=== PATIENT | female | born 1960 | race Caucasian/White ===

== ENCOUNTER 2017-04-16 19:34 | Emergency (ER) | payer OTHER ==
[2017-04-16 19:52] VITALS: BP 123/76; PULSE 102; TEMP 98.1; BMI 26.6
--- NOTE | 2017-04-16 19:52 | PDOC ---
Rapid Medical Evaluation Time Seen by Provider: 04/16/17 19:48 Medical Evaluation: Allergies Allergy/AdvReac Type Severity Reaction Status Date / Time No Known Allergies Allergy Verified 05/14/16 15:17 04/16/17 19:48 I have performed a brief in-person evaluation of this patient. The patient presents with a chief complaint of: Abd incisional redness/pain abdominoplasty x10d ago in [place] Pertinent physical exam findings: lower abd incision/ +erythematous/tenderon palp I have ordered the following: wound culture to incision The patient will proceed to the ED for further evaluation:
[2017-04-16] MEDS ORDERED: SODIUM CHLORIDE 1,000 ML IV ONE (21:14)
--- NOTE | 2017-04-16 21:19 | PDOC ---
History of Present Illness - General History Source: Patient - History of Present Illness Initial Comments: 04/16/17 23:19 "The patient is a 56 year old female with significant medical history of hyperlipidemia and prediabetes who presents to the ED 10 days s/p abdominoplasty with complaints of increasing redness and pain at her incision site for the past day. The patient reports the pain to be worst in the right lower quadrant. She reports a subjective fever secondary to her symptoms, but denies any chills. She reports seeing her surgeon 4 days post-op and was reported to be well. She reports her next visit to her surgeon will be in April. She denies nausea and vomiting, diaphoresis, cough, SOB, CP, or urinary symptoms. PCP: Dr. Omar Huston " <Misty Velásquez - Last Filed: 04/16/17 23:19> <Sam Smith - Last Filed: 04/17/17 03:11> - General Chief Complaint: Pain, Acute Stated Complaint: POST OP PAIN Time Seen by Provider: 04/16/17 19:48 Past History <Misty Velásquez - Last Filed: 04/16/17 23:19> - Past Medical History COPD: No Diabetes: Yes (PRE-DIABETES) - Suicide/Smoking/Psychosocial Hx Smoking History: Never smoked Hx Alcohol Use: No Drug/Substance Use Hx: No Substance Use Type: None Hx Substance Use Treatment: No <Sam Smith - Last Filed: 04/17/17 03:11> - Past Medical History Allergies/Adverse Reactions: Allergies Allergy/AdvReac Type Severity Reaction Status Date / Time cephalexin Allergy Verified 04/16/17 19:49 Home Medications: Ambulatory Orders Ibuprofen [Motrin -] 600 mg PO TID PRN 04/16/17 Amox-Tr/K Cl [Augmentin - 875Mg Tablet] 1 tab PO BID #10 tablet 04/17/17 Review of Systems - Review of Systems Comments:: 04/16/17 23:20 "CONSTITUTIONAL: + Subjective Fever No reported: Chills, Diaphoresis, Generalized Weakness, Malaise, Loss of Appetite HEENT: No reported: Rhinorrhea, Nasal Congestion, Throat Pain, Throat Swelling, Difficulty Swallowing, Mouth Swelling, Ear Pain, Eye Pain, Visual Changes CARDIOVASCULAR: No reported: Chest Pain, Syncope, Palpitations, Irregular Heart Rate, Lightheadedness, Peripheral Edema RESPIRATORY: No reported: Cough, Shortness of Breath, SOB with Exertion, Orthopnea, Wheezing , Stridor, Hemoptysis GASTROINTESTINAL: + Abdominal Pain No reported: Abdominal Distension, Nausea, Vomiting, Diarrhea, Constipation, Melena, Hematochezia GENITOURINARY: No reported: Dysuria, Frequency, Urgency, Hesitancy, Flank Pain, Genital Pain MUSCULOSKELETAL: No reported: Myalgia, Arthralgia, Joint Swelling, Back pain, Neck Pain SKIN: +Redness at incision site No reported: Itching, Pallor HEMEATOLOGIC/IMMUNOLOGIC: No reported: Easy Bleeding, Easy Bruising, Lymphadenopathy, Frequent infections ENDOCRINE: No reported: Unexplained Weight Gain, Unexplained Weight Loss, Heat Intolerance , Cold Intolerance NEUROLOGIC: No reported: Headache, Focal Weakness, Paresthesias, Vertigo, Lightheadedness, Unsteady Gait, Seizure, Mental Status Changes, Incontinence PSYCHIATRIC: No reported: Anxiety, Depression " All Other Systems: Reviewed and Negative <Misty Velásquez - Last Filed: 04/16/17 23:19> *Physical Exam - Vital Signs Last Vital Signs Temp Pulse Resp BP Pulse Ox 98.1 F 102 H 16 123/76 99 04/16/17 19:51 04/16/17 19:51 04/16/17 19:51 04/16/17 19:51 04/16/17 19:51 - Physical Exam Comments: 04/16/17 23:20 "GENERAL: The patient is awake, alert, and fully oriented, Nontoxic - in no acute distress. HEAD: Normocephalic, atraumatic. EYES: extraocular movements intact, sclera anicteric, conjunctiva clear. ENT: Normal voice, Moist mucous membranes. NECK: Normal range of motion, supple LUNGS: Breath sounds equal, clear to auscultation bilaterally. No wheezes, no rhonchi, no rales. HEART: Regular rate and rhythm, normal S1 and S2 without murmur, rub or gallop. ABDOMEN: Soft, nontender,large horizontal incision on lower abdomen, on R side of abdomen +induration with some yellowish translucent discharge, mild erythema , +ttp EXTREMITIES: Normal range of motion, no edema. No clubbing or cyanosis. No cords, erythema, or tenderness. NEUROLOGICAL: No facial assymetry, Normal speech, PSYCH: Normal mood, normal affect. SKIN: Warm, Dry, normal turgor," <Misty Velásquez - Last Filed: 04/16/17 23:19> - Vital Signs Last Vital Signs Temp Pulse Resp BP Pulse Ox 98.1 F 102 H 16 123/76 99 04/16/17 19:51 04/16/17 19:51 04/16/17 19:51 04/16/17 19:51 04/16/17 19:51 <Sam Smith - Last Filed: 04/17/17 03:11> ED Treatment Course - LABORATORY CBC & Chemistry Diagram: 04/16/17 21:25 04/16/17 21:25 - ADDITIONAL ORDERS Additional order review: Laboratory Results 04/16/17 21:25 Sodium 140 Potassium 4.0 Chloride 104 Carbon Dioxide 29 Anion Gap 7 L BUN 13 Creatinine 0.7 Creat Clearance w eGFR > 60 Random Glucose 95 Calcium 8.6 Total Bilirubin 0.3 AST 14 L ALT 29 Alkaline Phosphatase 120 H Total Protein 7.4 Albumin 3.4 04/16/17 21:25 RBC 4.13 MCV 88.0 MCHC 34.9 RDW 12.9 MPV 7.9 Neutrophils % 52.8 Lymphocytes % 36.5 Monocytes % 7.7 Eosinophils % 2.1 Basophils % 0.9 - Medications Given in the ED: ED Medications Discontinued Medications Generic Name Dose Route Start Last Admin Trade Name Hueyq PRN Reason Stop Dose Admin Sodium Chloride 1,000 mls @ 1,000 mls/hr 04/16/17 21:14 04/16/17 21:33 Normal Saline - IV 04/16/17 22:13 1,000 mls/hr .Q1H ONE Administration <Misty Velásquez - Last Filed: 04/16/17 23:19> - LABORATORY CBC & Chemistry Diagram: 04/16/17 21:25 04/16/17 21:25 - RADIOLOGY Radiology Studies Ordered: Category Date Time Status ABDOMEN & PELVIS CT WITH CONTR [CT] Stat CT Scan 04/16/17 21:13 Ordered <Sam Smith - Last Filed: 04/17/17 03:11> Medical Decision Making - Medical Decision Making 04/16/17 21:14 56y F s/p abdominoplasty 10 days ago presenting with worsening pain/redness of her wound +mild dc, mild tenderness/induration on the R side of her wound, minimal erythema concern for infctio nvs abscess/collection will ck labs, ct abd will erasess A portion of this note was documented by scribe services under my direction. I have reviewed the details of the note, within reason, and agree with the documentation with the following case summary and management plan written by me 04/17/17 02:38 pts labs reviewed no signs of leukocytosis ct abdomen shows some small collections approx 3.6 x 1.2 x 2.9 n ruq abd wall and and right anterior pelvic wall measuring 2.9 x 1.2 x 1.4. 04/17/17 02:41 will give pt some ceftriaxone will discuss with dr. Gray regarding CT results and plan ([phone]) 04/17/17 03:[address] Burrows states that it is frequent to have these collections would recommend pt fu with him as outpatient tomorrow would recommend abx, pt did not tolerate prophylactic keflex, is ok with augmentin copy of ct results given to pt to review with dr. lee retunr precautions were discussed I discussed the physical exam findings, ancillary test results and final diagnoses with the patient. I answered all of the patient's questions. The patient was satisfied with the care received and felt comfortable with the discharge plan and treatment plan. The patient will call their primary care physician within 24 hours to arrange follow-up and will return to the Emergency Department with any new, persistent or worsening symptoms. 04/17/17 03:06 <Sam Smith - Last Filed: 04/17/17 03:11> *DC/Admit/Observation/Transfer - Attestations Scribe Attestion: 04/16/17 23:21 Documentation prepared by Misty Velásquez, acting as medical advisor for Sam Smith MD. <Misty Velásquez - Last Filed: 04/16/17 23:19> - Discharge Dispostion Admit: No <Sam Smith - Last Filed: 04/17/17 03:11> Diagnosis at time of Disposition: Post-operative pain - Discharge Dispostion Disposition: HOME Condition at time of disposition: Stable - Prescriptions Prescriptions: Amox-Tr/K Cl [Augmentin - 875Mg Tablet] 1 tab PO BID #10 tablet - Referrals Referrals: Omar Huston [Primary Care Provider] - Lon Michael MD [Non Staff, Medical] - - Patient Instructions Printed Discharge Instructions: DI for Wound Infection Additional Instructions: Regrese al servicio de urgencias de inmediato con CUALQUIER sntoma nuevo, persistente o que empeora, incluidas las fiebres, escalofros, aumento del dolor , enrojecimiento u otras inquietudes DEBE llamar y hacer un seguimiento con el Dr. Burrows maana para jaden mayor evaluacin de theo sntomas. Los resultados fueron discutidos con usted. Aseg rese de que meadows mdico revise los resultados de meadows evaluacin de emergencia. ========= Return to the emergency department immediately with ANY new, persistent or worsening symptoms including any fevers, chills, increased pain, redness or other concerns You MUST call and follow up with Dr. Burrows tomorrow for further evaluation of your symptoms. Results were discussed with you. Please make sure your doctor reviews the results of your emergency evaluation. Print Language: YAKUT - Post Discharge Activity
[2017-04-16 21:34] LABS: BASO % 0.9 % (0-2.0); EOS % 2.1 % (0-4.5); HEMATOCRIT 36.4 % (32.4-45.2); HEMOGLOBIN 12.7 GM/dL (10.7-15.3); LYMPH % 36.5 % (8-40); MCH 30.7 pg (25.7-33.7); MCHC 34.9 g/dl (32.0-36.0); MEAN PLT VOLUME 7.9 fl (7.5-11.1); MONO % 7.7 % (3.8-10.2); NEUT % 52.8 % (42.8-82.8); PLATELET COUNT 400 K/MM3 (134-434); RBC 4.13 M/mm3 (3.60-5.2); RDW 12.9 % (11.6-15.6); WHITE BLOOD COUNT 7.8 K/mm3 (4.0-10.0)
[2017-04-16 22:02] LABS: ALBUMIN 3.4 g/dl (3.4-5.0); ALK PHOS 120 U/L (45-117); ANION GAP 7 (8-16); BILIRUBIN,TOTAL 0.3 mg/dL (0.2-1.0); BLOOD UREA NITROGEN 13 mg/dL (7-18); CALCIUM 8.6 mg/dL (8.5-10.1); CHLORIDE 104 mmol/L (98-107); CO2 29 mmol/L (21-32); CREATININE 0.7 mg/dL (0.55-1.02); GLUCOSE,RANDOM 95 mg/dL (74-106); SGOT/AST 14 U/L (15-37); SGPT/ALT 29 U/L (12-78); SODIUM 140 mmol/L (136-145); TOT PROT 7.4 g/dl (6.4-8.2)
[2017-04-17] MEDS ORDERED: CEFTRIAXONE 1 GM in DEXTROSE 5%-WATER - 50 ML IVPB ONE (02:40)
[2017-04-17] MEDS ORDERED: CEFTRIAXONE 1 GM/50 ML BAG ONE (03:04)
--- NOTE | 2017-04-20 08:12 | PDOC ---
Patient Follow-up (Call Back) - Post ED Follow - Up Condition at time of discharge: Stable Disposition at time of original discharge: HOME Reason for Call Back: Abnwl. Microbiology (Preliminary shows non-lactose fermenting GNB and Staphylococcus coagulase-negative. Patient currently placed on Augmentin which is adequate coverage. Will await final report.)
== END 2017-04-17 03:41 | disposition home or self-care (01) ==
LOC: JER 19:34
PROC: 3E0337Z Introduction of Electrolytic and Water Balance Substance into Peripheral Vein, Percutaneous Approach (ICD-10-PCS; principal; 2017-04-16)
PROC: 3E03329 Introduction of Other Anti-infective into Peripheral Vein, Percutaneous Approach (ICD-10-PCS; 2017-04-16)
DX: G89.18 Other acute postprocedural pain (principal); R10.30 Lower abdominal pain, unspecified
CPT/HCPCS: 36415; 74177-TC; 80053; 85025; 87070; 87186; 87205; 96361; 96365; 99282-25

== ENCOUNTER 2018-06-15 16:52 | Emergency (ER) | payer OTHER ==
[2018-06-15 17:02] VITALS: BP 147/77; PULSE 109; TEMP 97.9; BMI 29.2
--- NOTE | 2018-06-15 17:02 | PDOC ---
Rapid Medical Evaluation Time Seen by Provider: 06/15/18 16:58 Medical Evaluation: Allergies Allergy/AdvReac Type Severity Reaction Status Date / Time cephalexin Allergy Verified 04/16/17 19:49 06/15/18 17:00 I performed a brief in-person evaluation of this patient. Chief complaint is: Headache, dizziness, generalized weakness x 1 week. Pertinent physical exam findings include: Mild tachycardia. No focal neurologic deficits. I have ordered the following: Labs, urine. Patient will proceed to the ED for further evaluation. Discharge Disposition - Diagnosis Headache Qualifiers: Headache type: unspecified Headache chronicity pattern: acute headache Intractability: not intractable Qualified Code(s): R51 - Headache - Referrals - Patient Instructions - Post Discharge Activity
[2018-06-15 17:24] LABS: BASO % 0.5 % (0-2.0); EOS % 0.5 % (0-4.5); HEMATOCRIT 42.2 % (32.4-45.2); HEMOGLOBIN 14.6 GM/dL (10.7-15.3); LYMPH % 42.5 % (8-40); MCH 30.6 pg (25.7-33.7); MCHC 34.6 g/dl (32.0-36.0); MEAN CELL VOLUME 88.5 fl (80-96); MEAN PLT VOLUME 9.1 fl (7.5-11.1); MONO % 4.7 % (3.8-10.2); NEUT % 51.8 % (42.8-82.8); PLATELET COUNT 287 K/MM3 (134-434); RBC 4.77 M/mm3 (3.60-5.2); RDW 12.6 % (11.6-15.6); WHITE BLOOD COUNT 8.5 K/mm3 (4.0-10.0)
[2018-06-15 17:25] LABS: URINE APPEARANCE CLEAR; URINE BILIRUBIN NEGATIVE (<2.0 mg/dL); URINE COLOR YELLOW; URINE GLUCOSE (UA) NEGATIVE (NEGATIVE); URINE KETONE NEGATIVE (NEGATIVE); URINE LEUK ESTERASE TRACE (NEGATIVE); URINE NITRITE NEGATIVE (NEGATIVE); URINE PROTEIN NEGATIVE (NEGATIVE); URINE UROBILINOGEN NEGATIVE mg/dL (0.2-1.0)
--- NOTE | 2018-06-15 17:50 | PDOC ---
History of Present Illness - General Chief Complaint: Lightheaded Stated Complaint: PAIN Time Seen by Provider: 06/15/18 16:58 History Source: Patient Exam Limitations: Language Barrier - History of Present Illness Initial Comments: 06/15/18 17:49 Pt is a 58yo F with PMH of prediabetes, hypothyroidism, migraines presenting to ED with complaints of 1 week of headaches, dizziness and generalized weakness x1 week. Pt states that the headaches are located in the back of her head, does not radiate. She has been having these headaches for a couple months now. She went to her PMD who recommended a neurologist but was told to come to the ED if she did not feel right. She endorses vertiginous symptoms, sinus fullness and nausea. She also states that she has some photophobia. She denies fevers, chills, neck stiffness, numbness/tingling, vomiting, tinnitus, ear fullness, phonophobia, focal neurological deficits, back pain, chest pain, palpitations, SOB. She has been taking Tylenol and ibuprofen 800 for the pain which "helps a little bit". PMD: [facility] PMH: see hpi Meds: see med rec Allergies: Keflex Social: denies Past History - Past Medical History Allergies/Adverse Reactions: Allergies Allergy/AdvReac Type Severity Reaction Status Date / Time cephalexin Allergy Verified 04/16/17 19:49 Home Medications: Ambulatory Orders NK [No Known Home Medication] 06/15/18 COPD: No Diabetes: Yes (PRE-DIABETES) - Surgical History Cardiac Surgery: No Lung Surgery: No - Immunization History Immunization Up to Date: No - Suicide/Smoking/Psychosocial Hx Smoking History: Never smoked Have you smoked in the past 12 months: No Information on smoking cessation initiated: No Hx Alcohol Use: No Drug/Substance Use Hx: No Substance Use Type: None Hx Substance Use Treatment: No Review of Systems - Review of Systems Constitutional: Yes: Malaise. No: Chills, Fever HEENTM: Yes: Other (sinus pressure). No: Eye Pain, Blurred Vision, Double Vision, Ear Pain, Nose Pain, Tinnitus, Nose Bleeding, Throat Pain Respiratory: No: Cough, Shortness of Breath Cardiac (ROS): No: Chest Pain, Lightheadedness, Palpitations, Syncope ABD/GI: Yes: Nausea. No: Constipated, Diarrhea, Vomiting, Abdominal cramping : No: Symptoms Reported Musculoskeletal: No: Back Pain, Joint Pain Integumentary: No: Symptoms Reported Neurological: Yes: See HPI, Headache, Dizziness. No: Numbness, Paresthesia, Tingling, Weakness, Ataxia *Physical Exam - Vital Signs Last Vital Signs Temp Pulse Resp BP Pulse Ox 97.9 F 109 H 18 147/77 100 06/15/18 16:59 06/15/18 16:59 06/15/18 16:59 06/15/18 16:59 06/15/18 16:59 - Physical Exam General Appearance: Yes: Nourished, Appropriately Dressed. No: Apparent Distress HEENT: positive: EOMI, [place], Pharynx Normal. negative: Photophobia, Nasal Congestion Neck: positive: Trachea midline, Supple. negative: Lymphadenopathy (R), Lymphadenopathy (L) Respiratory/Chest: positive: Lungs Clear, Normal Breath Sounds. negative: Crackles, Rales, Rhonchi, Stridor, Wheezing Cardiovascular: positive: Regular Rhythm, S1, S2, Tachycardia. negative: Edema , JVD, Murmur Vascular Pulses: Carotid (R): 2+, Carotid (L): 2+, Dorsalis-Pedis (R): 2+, Doralis-Pedis (L): 2+ Gastrointestinal/Abdominal: positive: Normal Bowel Sounds, Soft. negative: Distended, Guarding, Rebound, Tenderness Musculoskeletal: negative: CVA Tenderness Extremity: positive: Normal Capillary Refill. negative: Pedal Edema, Swelling, Calf Tenderness Integumentary: positive: Normal Color, Dry, Warm Neurologic: positive: quality assurance advisor II-XII NML intact, Fully Oriented, Alert, Normal Mood/ Affect, Normal Response, Motor Strength 5/5, Finger to Nose. negative: Facial Droop, Numbness, Sensory Deficit, Confused, Disoriented Moderate Sedation - Procedure Monitoring Vital Signs: Procedure Monitoring Vital Signs Temperature 97.9 F 06/15/18 16:59 Pulse Rate 109 H 06/15/18 16:59 Respiratory Rate 18 06/15/18 16:59 Blood Pressure 147/77 06/15/18 16:59 O2 Sat by Pulse Oximetry (%) 100 06/15/18 16:59 ED Treatment Course - LABORATORY CBC & Chemistry Diagram: 06/15/18 17:15 06/15/18 17:07 - ADDITIONAL ORDERS Additional order review: Laboratory Results 06/15/18 17:15 Urine Color Yellow Urine Appearance Clear Urine pH 6.0 Ur Specific [place] 1.016 Urine Protein Negative Urine Glucose (UA) Negative Urine Ketones Negative Urine Blood 1+ H Urine Nitrite Negative Urine Bilirubin Negative Urine Urobilinogen Negative Ur Leukocyte Esterase Trace 06/15/18 17:15 RBC 4.77 MCV 88.5 MCHC 34.6 RDW 12.6 MPV 9.1 Neutrophils % 51.8 Lymphocytes % 42.5 H Monocytes % 4.7 Eosinophils % 0.5 Basophils % 0.5 Medical Decision Making - Medical Decision Making 06/15/18 19:05 Pt is a 58yo F with PMH of prediabetes, hypothyroidism, migraines presenting to ED with complaints of 1 week of headaches, dizziness and generalized weakness x1 week. Has appointment with Dr. Ramos tomorrow, referred by PMD. Vitals: hr 109 PE: no neurological deficits, no nystagmus. Pt has had migraines in the past but were R sided. Headaches now are posterior alleviated with ibuprofen and Tylenol. Seems more likely migraine type of headache. Low suspicion for posterior CVA given no neurological deficits, pt has been having headaches on and off for a few months, alleviated with Tylenol and ibuprofen. Low suspicion for vertebral dissection given no trauma, no hypertension. Pt is ambulating around ED, no signs of ataxia. Labs ordered by RME. Added EKG. Labs wnl. EKG pending. Pt given IV fluids, meclizine, zofran, IV tylenol, IV reglan and IV benadryl. Will reassess. Pt signed out to night team. *DC/Admit/Observation/Transfer Diagnosis at time of Disposition: Dizziness Headache Qualifiers: Headache type: unspecified Headache chronicity pattern: acute headache Intractability: not intractable Qualified Code(s): R51 - Headache - Discharge Dispostion Disposition: HOME Condition at time of disposition: Improved - Referrals Referrals: Ran Marsh MD [Primary Care Provider] - Librado Ramos MD [Staff Physician] - - Patient Instructions Printed Discharge Instructions: DI for Headache Additional Instructions: Hoy te vieron aqu por yong de ben y mareos. Tus pruebas de laboratorio fueron normales. Blyn es muy probablemente un tipo de dolor de ben de migraa. Siga tomando Tylenol e ibuprofeno segn sea necesario para el dolor de ben. Por favor, asegrese de mantener meadows annamarie con el neurlogo maana. Regrese a la fara de emergencias si los yong de ben empeoran, tiene cambios en la visin, comienza a vomitar, tiene adormecimiento / hormigueo, tiene debilidad en los brazos o las piernas, se desmaya o si aparece algn sntoma nuevo. Catarina You were seen here today for headaches and dizziness. Your lab tests were normal. This is most likely a migraine type of headache. Keep taking Tylenol and ibuprofen as needed for your headache. Please make sure you keep your appointment with the neurologist tomorrow. Come back to the emergency room if headaches get worse, you have changes in vision, you start vomiting, you have numbness/tingling, you have weakness in your arms or legs, you pass out or if any new concerning symptom develops. Thank you Print Language: SPA - Post Discharge Activity
[2018-06-15 18:01] LABS: ALBUMIN 4.2 g/dl (3.4-5.0); ALK PHOS 104 U/L (45-117); ANION GAP 8 MMOL/L (8-16); BILIRUBIN,TOTAL 0.5 mg/dL (0.2-1); BLOOD UREA NITROGEN 10 mg/dL (7-18); CHLORIDE 102 mmol/L (98-107); CO2 29 mmol/L (21-32); CREATININE 0.8 mg/dL (0.55-1.3); GLUCOSE,RANDOM 96 mg/dL (74-106); POTASSIUM 4.2 mmol/L (3.5-5.1); SGOT/AST 35 U/L (15-37); SGPT/ALT 38 U/L (13-61); SODIUM 138 mmol/L (136-145); TOT PROT 8.1 g/dl (6.4-8.2)
[2018-06-15] MEDS ORDERED: ONDANSETRON *ODT* 4 MG TABLET SL ONE (18:04)
[2018-06-15] MEDS ORDERED: MECLIZINE HCL 25 MG TABLET (FP) PO ONE (18:04)
[2018-06-15] MEDS ORDERED: METOCLOPRAMIDE HCL 10 MG TABLET (FP) PO ONE ×2 (18:15→18:19)
[2018-06-15] MEDS ORDERED: SODIUM CHLORIDE 1,000 ML IV STA (18:15)
[2018-06-15] MEDS ORDERED: ACETAMINOPHEN 1000 MG/100 ML VIAL (NON FORMULARY) IVPB ONE (18:15)
[2018-06-15] MEDS ORDERED: MECLIZINE HCL 25 MG TABLET (FP) ONE (18:19)
[2018-06-15] MEDS ORDERED: ONDANSETRON *ODT* 4 MG TABLET ONE (18:19)
--- NOTE | 2018-06-15 18:39 | PDOC ---
Attending Attestation - Resident Resident Name: Armida Esposito - ED Attending Attestation I have performed the following: I have examined & evaluated the patient, The case was reviewed & discussed with the resident, I agree w/resident's findings & plan, Exceptions are as noted - HPI HPI: 06/15/18 18:34 The patient is a 51 year old female, with a significant past medical history of HLD, prediabetes, hypothyroidism, and migraines who presents to the emergency department complaining of headaches, dizziness and generalized weakness for one week. Patient states that she has been having these headaches for a couple of months now but have recently gotten worse and her PMD recommended a neurologist but was told to come to the ED if the pain does not subside. Patient reports localized gradual onset posterior headaches and endorses dizziness described as room-spinning, sinus fullness and nausea. Patient also reports light exacerbates her headache. The patient has been taking Tylenol and ibuprofen 800 for the pain with good relief. Denies stiff neck, focal weakness/numbness. REports the room spinning comes on with the headache and both improve with NSAIDS/tylenol. The patient denies chest pain, shortness of breath, tinnitus, phonophobia, and back pain. The patient denies fever, chills, vomit, diarrhea and constipation. The patient denies dysuria, frequency, urgency and hematuria. Allergies: cephalexin, Keflex Past surgical history: Social history: No reported PCP: Dr. Marsh - Physicial Exam PE: 06/15/18 18:36 GENERAL: Awake, alert, and fully oriented, in no acute distress. Non toxic. HEAD: No signs of trauma EYES: PERRLA, EOMI, sclera anicteric, conjunctiva clear ENT: Auricles normal inspection, hearing grossly normal, nares patent, oropharynx clear without exudates. Moist mucosa NECK: Normal ROM, supple, no lymphadenopathy, JVD, or masses LUNGS: Breath sounds equal, clear to auscultation bilaterally. No wheezes, and no crackles HEART: Regular rate and rhythm, normal S1 and S2, no murmurs, rubs or gallops ABDOMEN: Soft, nontender, normoactive bowel sounds. No guarding, no rebound. No masses EXTREMITIES: Normal range of motion, no edema. No clubbing or cyanosis. No cords , erythema, or tenderness BACK: No midline spinal tenderness in cervical/thoracic/lumbar region NEUROLOGICAL: Normal speech, cranial nerves intact, negative pronator drift, 5/ 5 strength in all 4 extremities, normal sensation to light touch in all 4 extremities, normal cerebellar exam, normal gait, normal tone SKIN: Warm, Dry, normal turgor, no rashes or lesions noted. - Medical Decision Making 06/15/18 18:38 58yo F hx HL, migraines presents to the ED with 1 week of intermittent headache , weakness, room spinning dizziness. Vitals with tachycardia on arrival, on my exam, HR 88. REmaining vitals wnl. Exam wnl, normal neurologic exam. No red flag symptoms of sudden onset headache, or peak within 30 mins. Pt is also neuro intact. Dizziness is positional, improves with not moving her head. Plan to treat with meclizine, IV tylenol, fluids, reglan and reassess. Heart Score/ECG Review #1 06/15/18 18:50 Twelve-lead EKG was performed and reviewed by me. Normal sinus rhythm, rate 91. Normal axis and intervals. No ST elevations or T-wave inversions.
[2018-06-15 18:41] LABS: EPI CELLS RARE /HPF (FEW); URINE MUCUS RARE
[2018-06-15] MEDS ORDERED: ACETAMINOPHEN INJECTION 100 ML IVPB ONE (18:42)
--- NOTE | 2018-06-16 01:11 | PDOC ---
*Physical Exam - Vital Signs Last Vital Signs Temp Pulse Resp BP Pulse Ox 97.9 F 109 H 18 147/77 100 06/15/18 16:59 06/15/18 16:59 06/15/18 16:59 06/15/18 16:59 06/15/18 16:59 ED Treatment Course - LABORATORY CBC & Chemistry Diagram: 06/15/18 17:15 06/15/18 17:07 - ADDITIONAL ORDERS Additional order review: Laboratory Results 06/15/18 06/15/18 17:15 17:07 Sodium 138 Potassium 4.2 Chloride 102 Carbon Dioxide 29 Anion Gap 8 BUN 10 Creatinine 0.8 Creat Clearance w eGFR > 60 Random Glucose 96 Calcium 9.0 Total Bilirubin 0.5 AST 35 ALT 38 Alkaline Phosphatase 104 Total Protein 8.1 Albumin 4.2 Urine Color Yellow Urine Appearance Clear Urine pH 6.0 Ur Specific Anderson 1.016 Urine Protein Negative Urine Glucose (UA) Negative Urine Ketones Negative Urine Blood 1+ H Urine Nitrite Negative Urine Bilirubin Negative Urine Urobilinogen Negative Ur Leukocyte Esterase Trace Urine WBC (Auto) 1 Urine RBC (Auto) 3 Ur Epithelial Cells Rare Urine Mucus Rare 06/15/18 17:15 RBC 4.77 MCV 88.5 MCHC 34.6 RDW 12.6 MPV 9.1 Neutrophils % 51.8 Lymphocytes % 42.5 H Monocytes % 4.7 Eosinophils % 0.5 Basophils % 0.5 - Medications Given in the ED: ED Medications Discontinued Medications Generic Name Dose Route Start Last Admin Trade Name Freq PRN Reason Stop Dose Admin Acetaminophen 1,000 mg 06/15/18 18:15 06/15/18 18:47 Ofirmev Injection - IVPB 06/15/18 18:16 1,000 mg ONCE ONE Administration Diphenhydramine HCl 25 mg 06/15/18 18:15 06/15/18 18:47 Benadryl Injection - IVPUSH 06/15/18 18:16 25 mg ONCE ONE Administration Sodium Chloride 1,000 mls @ 1,000 mls/hr 06/15/18 18:15 06/15/18 18:41 Normal Saline - IV 06/15/18 19:14 1,000 mls/hr ASDIR STA Administration Meclizine HCl 25 mg 06/15/18 18:04 06/15/18 18:23 Antivert - PO 06/15/18 18:05 25 mg ONCE ONE Administration Metoclopramide HCl 10 mg 06/15/18 18:15 06/15/18 18:23 Reglan - PO 06/15/18 18:16 10 mg ONCE ONE Administration Ondansetron HCl 4 mg 06/15/18 18:04 06/15/18 18:21 Zofran Odt - SL 06/15/18 18:05 4 mg ONCE ONE Administration Medical Decision Making - Medical Decision Making 06/16/18 01:11 Headahe better. Will DC with neuro follow up. *DC/Admit/Observation/Transfer Diagnosis at time of Disposition: Dizziness Headache Qualifiers: Headache type: unspecified Headache chronicity pattern: acute headache Intractability: not intractable Qualified Code(s): R51 - Headache - Discharge Dispostion Disposition: HOME Condition at time of disposition: Improved - Referrals Referrals: Ran Marsh MD [Primary Care Provider] - Librado Ramos MD [Staff Physician] - - Patient Instructions Printed Discharge Instructions: DI for Headache Additional Instructions: Hoy te vieron aqu por yong de ben y mareos. Tus pruebas de laboratorio fueron normales. [place] es muy probablemente un tipo de dolor de ben de migraa. Siga tomando Tylenol e ibuprofeno segn sea necesario para el dolor de ben. Por favor, asegrese de mantener meadows annamarie con el neurlogo maana. Regrese a la fara de emergencias si los yong de ben empeoran, tiene cambios en la visin, comienza a vomitar, tiene adormecimiento / hormigueo, tiene debilidad en los brazos o las piernas, se desmaya o si aparece algn sntoma nuevo. Catarina You were seen here today for headaches and dizziness. Your lab tests were normal. This is most likely a migraine type of headache. Keep taking Tylenol and ibuprofen as needed for your headache. Please make sure you keep your appointment with the neurologist tomorrow. Come back to the emergency room if headaches get worse, you have changes in vision, you start vomiting, you have numbness/tingling, you have weakness in your arms or legs, you pass out or if any new concerning symptom develops. Thank you Print Language: SPA - Post Discharge Activity
--- NOTE | 2018-06-16 12:23 | EKG ---
Test Reason : Blood Pressure : / mmHG Vent. Rate : 091 BPM Atrial Rate : 091 BPM P-R Int : 142 ms QRS Dur : 066 ms QT Int : 362 ms P-R-T Axes : 049 060 043 degrees QTc Int : 445 ms NORMAL SINUS RHYTHM NORMAL ECG NO PREVIOUS ECGS AVAILABLE Confirmed by BEBE PROCTOR MD ([id number]) on 06/16/2018 12:22:44 PM Referred By: Confirmed By:BEBE PROCTOR MD
== END 2018-06-16 02:04 | disposition home or self-care (01) ==
LOC: JER 16:52
PROC: 3E0337Z Introduction of Electrolytic and Water Balance Substance into Peripheral Vein, Percutaneous Approach (ICD-10-PCS; principal; 2018-06-15)
PROC: 3E033NZ Introduction of Analgesics, Hypnotics, Sedatives into Peripheral Vein, Percutaneous Approach (ICD-10-PCS; 2018-06-15)
PROC: 3E033GC Introduction of Other Therapeutic Substance into Peripheral Vein, Percutaneous Approach (ICD-10-PCS; 2018-06-15)
DX: R51 Headache (principal); R42 Dizziness and giddiness; R73.03 Prediabetes; E03.9 Hypothyroidism, unspecified
CPT/HCPCS: 36415; 80053; 81003; 81015; 85025; 93005; 93010; 99283-25; J0131; J7030; Q0162

== ENCOUNTER 2021-01-08 10:21 | Day surgery (SDC) | payer OTHER ==
[2021-01-07 10:49] VITALS: BMI 28.8
[2021-01-08 10:58] VITALS: TEMP 97.8
[2021-01-08 12:48] VITALS: BP 116/49; PULSE 74
== END 2021-01-08 13:01 | disposition home or self-care (01) ==
LOC: FASU-ENDO 10:21
PROVIDERS: ATTEND Internal Medicine Gastroenterology
PROC: 0DB68ZX Excision of Stomach, Via Natural or Artificial Opening Endoscopic, Diagnostic (ICD-10-PCS; 2021-01-08)
PROC: 0DB48ZX Excision of Esophagogastric Junction, Via Natural or Artificial Opening Endoscopic, Diagnostic (ICD-10-PCS; 2021-01-08)
PROC: 0DB98ZX Excision of Duodenum, Via Natural or Artificial Opening Endoscopic, Diagnostic (ICD-10-PCS; principal; 2021-01-08 11:52)
DX: K29.50 Unspecified chronic gastritis without bleeding (principal); B96.81 Helicobacter pylori [H. pylori] as the cause of diseases classified elsewhere; E78.5 Hyperlipidemia, unspecified; R73.03 Prediabetes

== ENCOUNTER 2022-09-29 17:30 | Emergency (ER) | payer OTHER ==
[2022-09-29 17:51] VITALS: RESP 16; BMI 27.4
[2022-09-29] MEDS ORDERED: ACETAMINOPHEN 1000 MG/100 ML BAG IVPB ONE (19:34)
[2022-09-29 20:43] LABS: BASO % 0.3 % (0-2.0); EOS % 0.5 % (0-4.5); HEMOGLOBIN 14.5 GM/dL (10.7-15.3); LYMPH % 34.5 % (8-40); MCH 29.9 pg (25.7-33.7); MCHC 34.5 g/dl (32.0-36.0); MEAN CELL VOLUME 86.8 fl (80-96); MEAN PLT VOLUME 9.5 fl (7.5-11.1); MONO % 7.3 % (3.8-10.2); NEUT % 57.4 % (42.8-82.8); PLATELET COUNT 287 10^3/uL (134-434); RBC 4.83 M/mm3 (3.60-5.2); RDW 13.5 % (11.6-15.6); WHITE BLOOD COUNT 7.6 K/mm3 (4.0-10.0)
[2022-09-29] MEDS ORDERED: ACETAMINOPHEN INJECTION 100 ML IVPB ONE (20:47)
[2022-09-29 20:59] LABS: POTASSIUM 3.8 mmol/L (3.5-5.1)
[2022-09-29 21:03] LABS: CALCIUM 9.3 mg/dL (8.5-10.1)
[2022-09-29 21:04] LABS: ALBUMIN 4.2 g/dl (3.4-5.0); MAGNESIUM 2.4 mg/dL (1.8-2.4)
[2022-09-29 21:07] LABS: CREATININE 0.9 mg/dL (0.55-1.3)
[2022-09-29 21:08] LABS: BILIRUBIN,TOTAL 0.4 mg/dL (0.2-1); TOT PROT 8.3 g/dl (6.4-8.2)
[2022-09-29 21:13] LABS: BLOOD UREA NITROGEN 14.7 mg/dL (7-18)
[2022-09-30 01:57] VITALS: BP 128/65; PULSE 63; TEMP 98.7
== END 2022-09-30 02:18 | disposition home or self-care (01) ==
LOC: JER 17:30
PROC: 3E033NZ Introduction of Analgesics, Hypnotics, Sedatives into Peripheral Vein, Percutaneous Approach (ICD-10-PCS; principal; 2022-09-29)
DX: R07.89 Other chest pain (principal); R11.0 Nausea; R42 Dizziness and giddiness; Z20.822 Contact with and (suspected) exposure to COVID-19
CPT/HCPCS: 0241U-QW; 36415; 71045-TC-FY; 80053; 83735; 84484; 85025; 86850; 86900; 86901; 93005; 93010; 99285-25